=== PATIENT | male | born 1980 | race Caucasian/White ===

== ENCOUNTER 2023-06-24 17:21 | Emergency (ER) | payer SELFPAY ==
[2023-06-24 17:23] VITALS: BP 137/90
[2023-06-24 17:24] VITALS: BMI 23.7
--- NOTE | 2023-06-24 18:59 | ED.GENMED ---
History of Present Illness
General
Chief Complaint: Extremity Pain (non-traumatic)
Time Seen by Provider: 06/24/23 18:36
Travel History
Have you had any contact with someone who has COVID-19?: No
Do you have any symptoms of coronavirus? Fever > 100 degrees, chills, cough, shortness of breath, sore throat, loss of taste or smell, muscle aches, or headache?: No
History of Present Illness
History of Present Illness:
43-year-old male with history of polysubstance abuse presents to the emergency department for evaluation of left knee pain and swelling that developed after a fall at work yesterday. He states he tripped and fell over machine, he saw a bolt
sticking out of the machine but he is uncertain if he struck this. No open wounds to the knee. He is able to walk with significant pain. Denies any other injuries. No fevers or night sweats
Past History
Past History
ED Past Medical History: HTN and Other (Substance abuse); Negative Hypercholesterolemia, IDDM or NIDDM
ED Past Surgical History: None
Social History
Tobacco: Smoker
Alcohol: Occasional
Drug: Narcotics
Personal: Single
Living: with family
Employment: Not employed
Family History
Family History: Unable to obtain
Review of Systems
Review of Systems
Allergies reviewed?: Yes
All Other Systems: ROS reviewed and negative except as documented in HPI and ROS
Phy Exam
Physical Exam
Physical Exam:
GEN: Well appearing, NAD, WDWN
HEENT: Oral mucosa moist, no scleral icterus
Cardiac: Regular rate
Lung: No respiratory distress, no tachypnea
MSK: Large left knee effusion, no erythema, no obvious open wounds. Flexion and extension severely limited secondary to swelling. There is no pain with passive range of motion
Skin: Good color, no pallor or jaundice, no rashes
Neuro: AO x3, moves all extremities freely
Psych: Calm, cooperative
Course
Orders/Labs/Results
Orders:
Orders
06/24/23 17:27
Knee, Left 4 or More Views [CR Knee - Left 4 Or More View*] Urgent
Comment:
Reason For Exam: pain
Vital Signs
Initial and Last Documented VS:
Initial Vital Signs
Temp Pulse Resp BP Pulse Ox
98.9 F 63 16 137/90 99
06/24/23 17:23 06/24/23 17:23 06/24/23 17:23 06/24/23 17:23 06/24/23 17:23
Last Documented Vital Signs
Temp Pulse Resp BP Pulse Ox
98.9 F 63 16 137/90 99
06/24/23 17:23 06/24/23 17:23 06/24/23 17:23 06/24/23 17:23 06/24/23 17:23
MDM/Problems Addressed
MDM/Problems Addressed:
Given the reported trauma this is likely hemarthrosis which may represent a meniscal tear or ligamentous rupture. Given lack of open wounds or erythema there is no indication for arthrocentesis to evaluate for septic arthritis. Patient is placed
in a knee immobilizer, advised weightbearing as tolerated with outpatient orthopedic follow-up, will prescribe NSAIDs for pain relief. He also requested incidentally a prescription for trazodone that he takes nightly for sleep purposes and I have
obliged this request
*Critical Care Note
Total Time (30-74mins, 75-104mins- exclusive of procedures): Not Applicable
ED Attending Note
-
Portions of this chart may have been created with voice recognition software.� Occasional wrong word or��sound alike� substitutions may have occurred due to the inherent limitations of voice recognition software.
Discharge Plan
Departure
Patient Disposition: Home (Routine Discharge)
Date of Disposition: 06/24/23
Time of Disposition: 19:00
Patient with high blood pressure during this ER visit?: No
Discharge Problem:
Effusion of left knee
Instructions: Swollen Joints (DC)
Prescriptions:
New
diclofenac sodium 75 mg tablet,delayed release (DR/EC)
75 mg PO BID Qty: 20 0RF
trazodone 50 mg tablet
50 mg PO HS Qty: 30 0RF
No Action
buprenorphine-naloxone [Suboxone] 8-2 mg Film
2 film BUCCAL Q24H
Referrals:
Jon Cox MD [Active] -
Activity Restrictions/Additional Instructions:
Elevate the knee
Ice often
Wear the immobilizer brace whenever you attempt to walk
See Orthopedics as soon as possible
Interventions
Interventions:
*Risk Screen - Suicide Last Done: 06/24/23 17:24
*General Assessment Last Done: 06/24/23 18:37
*Neglect/Abuse Screening Last Done: 06/24/23 17:24
ED- Fall Risk Assessment Last Done: 06/24/23 18:59
*ED COVID-19 Vaccine History Last Done: 06/24/23 18:37
*Nursing Disposition Last Done: 06/24/23 19:27
ED-Skin Assessment Last Done: 06/24/23 18:37
ED-Peripheral Vascular Assessment Last Done: 06/24/23 18:37
ED-Musculoskeletal Assessment Last Done: 06/24/23 18:37
Discharge Date and Time
Discharge Date/Time: 06/24/23 19:29
Print Language: [place]
== END 2023-06-24 19:29 | disposition home or self-care (01) ==
LOC: EMR 17:21
PROVIDERS: EMERGENCY PHYSICIAN Emergency Medicine; FAMILY PHYSICIAN Family Medicine
DX: M25.462 Effusion, left knee (principal); W01.0XXA Fall on same level from slipping, tripping and stumbling without subsequent striking against object, initial encounter; F17.200 Nicotine dependence, unspecified, uncomplicated; Y99.0 Civilian activity done for income or pay
CPT/HCPCS: 99283; 29505; 73564